=== PATIENT | male | born 1985 | race Caucasian/White ===

== ENCOUNTER 2017-05-05 01:04 | Observation (INO) | payer SELFPAY ==
[~2017-05-05] VITALS: Ht 185.4 cm; Wt 106.6 kg
[2017-05-05 02:05] LABS: HEMATOCRIT 37.9 % (39.0-50.0); HEMOGLOBIN 12.4 g/dl (14.0-18.0); MEAN CELL VOLUME 94.8 fL CALC (80.0-100.0); MEAN CORPUSCULAR HGB CONC 32.7 g/L CALC (32.0-36.0); NEUT# 14.33 thou/uL (1.82-7.42); RED CELL DISTRI WIDTH 12.4 % (11.5-15.5)
[2017-05-05 02:12] LABS: ALKALINE PHOSPHATASE 84 u/l (38-126); ANION GAP 15 (6-22 (CALC)); BILIRUBIN, TOTAL 0.3 mg/dL (0.0-1.4); BUN 8 mg/dL (9-20); BUN/CREATININE RATIO 9 (12-20 (CALC)); CARBON DIOXIDE 31 mmol/l (22-30); CHLORIDE 97 mmol/l (95-108); CREATININE 0.9 mg/dL (0.7-1.3); GFR > 60 ML/MIN (>=60 (CALC)); GFR FOR AFR.AMER. > 60 ML/MIN (>=60 (CALC)); POTASSIUM 4.2 mmol/l (3.5-5.1); SGOT/AST 26 u/l (17-59); SGPT/ALT 43 u/l (21-72); SODIUM 139 mmol/l (137-146); TOTAL PROTEIN 7.4 g/dL (6.3-8.2)
[2017-05-05 03:57] LABS: COCAINE NEGATIVE (NEGATIVE); METHADONE NEGATIVE (NEGATIVE); TETRAHYDROCANNABIONOL NEGATIVE (NEGATIVE)
[2017-05-05 03:58] LABS: BARBITURATES NEGATIVE (NEGATIVE); OXCYCODONE POSITIVE (NEGATIVE); TRICYLIC ANTIDEPRESSANTS NEGATIVE (NEGATIVE)
[2017-05-05 06:05] VITALS: BP 110/71
[2017-05-05 07:42] VITALS: BP 110/82
[2017-05-05 15:16] VITALS: BP 112/67
[2017-05-05 18:40] VITALS: BP 124/69
[2017-05-06 04:05] VITALS: BP 118/71
[2017-05-06 08:11] LABS: HEMATOCRIT 39.7 % (39.0-50.0); HEMOGLOBIN 12.8 g/dl (14.0-18.0); IMMATURE GRANULOCYTES 1.1 % (0.0-1.0); MEAN CELL VOLUME 95.4 fL CALC (80.0-100.0); MEAN CORPUSCULAR HGB 30.8 pG CALC (26.0-32.0); MEAN CORPUSCULAR HGB CONC 32.2 g/L CALC (32.0-36.0); NEUT# 13.2 thou/uL (1.82-7.42); RED BLOOD COUNT 4.16 mill/uL (4.70-6.10); RED CELL DISTRI WIDTH 12.5 % (11.5-15.5)
[2017-05-06 08:58] VITALS: BP 117/68
[2017-05-06 16:13] VITALS: BP 126/63
[2017-05-07 04:55] VITALS: BP 115/68
[2017-05-07 06:12] LABS: HEMATOCRIT 35.7 % (39.0-50.0); HEMOGLOBIN 11.8 g/dl (14.0-18.0); IMMATURE GRANULOCYTES 0.8 % (0.0-1.0); MEAN CELL VOLUME 94.2 fL CALC (80.0-100.0); MEAN CORPUSCULAR HGB 31.1 pG CALC (26.0-32.0); MEAN CORPUSCULAR HGB CONC 33.1 g/L CALC (32.0-36.0); NEUT# 12.92 thou/uL (1.82-7.42); RED BLOOD COUNT 3.79 mill/uL (4.70-6.10); RED CELL DISTRI WIDTH 12.6 % (11.5-15.5)
[2017-05-07 06:14] LABS: ANION GAP 14 (6-22 (CALC)); BUN 4 mg/dL (9-20); BUN/CREATININE RATIO 7 (12-20 (CALC)); CARBON DIOXIDE 24 mmol/l (22-30); CHLORIDE 104 mmol/l (95-108); CREATININE 0.7 mg/dL (0.7-1.3); GFR > 60 ML/MIN (>=60 (CALC)); GFR FOR AFR.AMER. > 60 ML/MIN (>=60 (CALC)); MAGNESIUM 1.5 mg/dL (1.6-2.3); POTASSIUM 4.2 mmol/l (3.5-5.1); SODIUM 138 mmol/l (137-146)
[2017-05-07 07:55] VITALS: BP 108/62
[2017-05-07] MEDS ORDERED: DOXYCYCL HYC100 MG PO (12:41)
[2017-05-07] MEDS ORDERED: AUGMENTIN875TAB PO (12:41)
[2017-05-07] MEDS ORDERED: MOTRIN800 MG PO (12:45)
[2017-05-07] MEDS ORDERED: LORTAB 5/3255 MG PO (12:45)
== END 2017-05-07 14:34 | disposition home or self-care (01) | DRG 605 ==
LOC: ED 01:04 → ED-I 03:00 → MS2 04:43 → ED 04:43 → MS2 05-07 14:34
PROVIDERS: Emergency Medicine; Nurse Practitioner Family; Surgery; ADMIT Internal Medicine; ATTEND Internal Medicine
PROC: 0H95XZX Drainage of Chest Skin, External Approach, Diagnostic (ICD-10-PCS; principal; 2017-05-05)
PROC: 0H95XZZ Drainage of Chest Skin, External Approach (ICD-10-PCS; 2017-05-07)
DX: S20.211A Contusion of right front wall of thorax, initial encounter (principal); E83.42 Hypomagnesemia; F11.10 Opioid abuse, uncomplicated; I10 Essential (primary) hypertension; F17.210 Nicotine dependence, cigarettes, uncomplicated; F15.10 Other stimulant abuse, uncomplicated; L08.9 Local infection of the skin and subcutaneous tissue, unspecified; V86.95XA Unspecified occupant of 3- or 4- wheeled all-terrain vehicle (ATV) injured in nontraffic accident, initial encounter; Z86.19 Personal history of other infectious and parasitic diseases
CPT/HCPCS: G0378; J0692; J3370